=== PATIENT | male | born 1970 | race Caucasian/White ===

== ENCOUNTER 2017-01-22 12:08 | Emergency (ER) | payer BC ==
[~2017-01-22] VITALS: Ht 182.9 cm; Wt 100.0 kg
[~2017-01-22 12:08] MED LIST: DOXYCYCL HYC100 MG PO; FLONASE NASAL50 MCG; PREDNISONE20 MG PO
[2017-01-22] MEDS ORDERED: CIPROFLOXACN750 MG PO (12:43)
[2017-01-22 12:51] VITALS: BP 149/92
== END 2017-01-22 13:01 | disposition home or self-care (01) | DRG 605 ==
LOC: ED 12:08
PROC: 0HCQXZZ Extirpation of Matter from Finger Nail, External Approach (ICD-10-PCS; principal; 2017-01-22)
DX: S60.455A Superficial foreign body of left ring finger, initial encounter (principal); W45.8XXA Other foreign body or object entering through skin, initial encounter; Y93.89 Activity, other specified; Y92.89 Other specified places as the place of occurrence of the external cause

== ENCOUNTER 2017-09-29 07:33 | Day surgery (SDC) | payer BC ==
[~2017-09-29] VITALS: Ht 180.3 cm; Wt 86.2 kg
[~2017-09-29 07:33] MED LIST changes: +CIPROFLOXACN750 MG PO
[2017-09-29 10:34] VITALS: BP 116/75
[2017-09-29] MEDS ORDERED: METRONIDAZOL500 MG PO (20:15)
[2017-09-29] MEDS ORDERED: CIPROFLOXACN500 MG PO (20:15)
== END 2017-09-29 10:50 | disposition home or self-care (01) | DRG 951 ==
LOC: ENDO 07:33
PROVIDERS: ATTEND Surgery
PROC: 0DBP8ZX Excision of Rectum, Via Natural or Artificial Opening Endoscopic, Diagnostic (ICD-10-PCS; principal; 2017-09-29)
PROC: 0DBL8ZX Excision of Transverse Colon, Via Natural or Artificial Opening Endoscopic, Diagnostic (ICD-10-PCS; 2017-09-29)
PROC: 0DBN8ZX Excision of Sigmoid Colon, Via Natural or Artificial Opening Endoscopic, Diagnostic (ICD-10-PCS; 2017-09-29)
PROC: 3E0H8KZ Introduction of Other Diagnostic Substance into Lower GI, Via Natural or Artificial Opening Endoscopic (ICD-10-PCS; 2017-09-29)
DX: Z12.11 Encounter for screening for malignant neoplasm of colon (principal); C18.4 Malignant neoplasm of transverse colon; K63.5 Polyp of colon; K62.1 Rectal polyp; Z80.0 Family history of malignant neoplasm of digestive organs
CPT/HCPCS: Q9967; S0164

== ENCOUNTER 2017-09-29 17:58 | Emergency (ER) | payer BC ==
[~2017-09-29] VITALS: Ht 180.3 cm; Wt 90.0 kg
[2017-09-29 18:44] LABS: HEMATOCRIT 45.7 % (39.0-50.0); HEMOGLOBIN 15.1 g/dl (14.0-18.0); IMMATURE GRANULOCYTES 0.4 % (0.0-1.0); MEAN CELL VOLUME 90.1 fL CALC (80.0-100.0); MEAN CORPUSCULAR HGB 29.8 pG CALC (26.0-32.0); NEUT# 11.89 thou/uL (1.82-7.42); RED BLOOD COUNT 5.07 mill/uL (4.70-6.10); RED CELL DISTRI WIDTH 12.8 % (11.5-15.5)
[2017-09-29 19:06] LABS: URINE BILIRUBIN - DIPSTICK NEGATIVE (NEGATIVE); URINE BLOOD DIPSTICK NEGATIVE (NEGATIVE); URINE COLOR YELLOW; URINE GLUCOSE - DIPSTICK NEGATIVE (NEGATIVE); URINE KETONE TRACE mg/dL (NEGATIVE); URINE LEUK ESTERASE NEGATIVE (NEGATIVE); URINE NITRITE - DIPSTICK NEGATIVE (Negative); URINE PH 5.5 (4.5-8.0); URINE PROTEIN - DIPSTICK NEGATIVE (NEG-TRACE); URINE SPECIFIC GRAVITY 1.025; URINE UROBILINOGEN - DIPSTICK 0.2 E.U./dL (0.2)
[2017-09-29 19:07] LABS: URINE CLARITY CLEAR
[2017-09-29 19:11] LABS: ALBUMIN 4.3 g/dL (3.2-5.0); ALKALINE PHOSPHATASE 52 u/l (38-126); AMYLASE 65 u/l (30-110); ANION GAP 16 (6-22 (CALC)); BILIRUBIN, TOTAL 0.7 mg/dL (0.0-1.4); BUN 16 mg/dL (9-20); BUN/CREATININE RATIO 20 (12-20 (CALC)); CARBON DIOXIDE 24 mmol/l (22-30); CHLORIDE 100 mmol/l (95-108); CREATININE 0.8 mg/dL (0.7-1.3); GFR > 60 ML/MIN (>=60 (CALC)); GFR FOR AFR.AMER. > 60 ML/MIN (>=60 (CALC)); LIPASE 54 u/l (23-300); POTASSIUM 3.6 mmol/l (3.5-5.1); SGOT/AST 33 u/l (17-59); SGPT/ALT 45 u/l (21-72); SODIUM 137 mmol/l (137-146); TOTAL PROTEIN 7.6 g/dL (6.3-8.2)
[2017-09-29] MEDS ORDERED: METRONIDAZOL500 MG PO (20:15)
[2017-09-29] MEDS ORDERED: CIPROFLOXACN500 MG PO (20:15)
[2017-09-29 20:16] VITALS: BP 145/78
== END 2017-09-29 20:25 | disposition home or self-care (01) | DRG 392 ==
LOC: ED 17:58
PROVIDERS: Emergency Medicine
DX: K52.9 Noninfective gastroenteritis and colitis, unspecified (principal); Z98.890 Other specified postprocedural states
CPT/HCPCS: Q9967; S0164

== ENCOUNTER 2018-10-26 07:49 | Day surgery (SDC) | payer BC ==
[~2018-10-26] VITALS: Ht 180.3 cm; Wt 86.2 kg
[~2018-10-26 07:49] MED LIST changes: +CIPROFLOXACN500 MG PO; +METRONIDAZOL500 MG PO
[2018-10-26 10:06] VITALS: BP 109/75
== END 2018-10-26 10:15 | disposition home or self-care (01) | DRG 848 ==
LOC: ENDO 07:49
PROVIDERS: ATTEND Surgery
PROC: 0DJD8ZZ Inspection of Lower Intestinal Tract, Via Natural or Artificial Opening Endoscopic (ICD-10-PCS; principal; 2018-10-26)
DX: Z08 Encounter for follow-up examination after completed treatment for malignant neoplasm (principal); Z85.038 Personal history of other malignant neoplasm of large intestine; Z90.49 Acquired absence of other specified parts of digestive tract

== ENCOUNTER 2021-12-02 15:48 | Emergency (ER) | payer BC ==
[2021-12-02] VITALS (7 sets, daily range): BP systolic 117–135; BP diastolic 80–94
[~2021-12-02] VITALS: Ht 180.3 cm; Wt 90.0 kg
[2021-12-02] MEDS ORDERED: XARELTO15 MG PO (16:53)
[2021-12-02] MEDS ORDERED: XARELTO20 MG PO (16:53)
[2021-12-02] MEDS ORDERED: VALIUM2 MG PO (17:02)
[2021-12-02 17:10] LABS: HEMATOCRIT 32.9 % (39.0-50.0); HEMOGLOBIN 10.3 g/dl (14.0-18.0); IMMATURE GRANULOCYTES 0.5 % (0.0-5.0); MEAN CELL VOLUME 95.9 fL CALC (80.0-100.0); MEAN CORPUSCULAR HGB CONC 31.3 g/dL CAL (32.0-36.0); NEUT# 3.5 thou/uL (1.82-7.42); RED BLOOD COUNT 3.43 mill/uL (4.70-6.10); RED CELL DISTRI WIDTH 13.9 % (11.5-15.5)
[2021-12-02 17:25] LABS: ALBUMIN 3.9 g/dL (3.2-5.0); ALKALINE PHOSPHATASE 73 u/l (38-126); BILIRUBIN, TOTAL 0.6 mg/dL (0.0-1.4); BUN 16 mg/dL (9-20); BUN/CREATININE RATIO 16 (12-20 (CALC)); CHLORIDE 102 mmol/l (95-108); GFR FOR AFR.AMER. > 60 ML/MIN (>=60 (CALC)); GFR OTHER RACES > 60 ML/MIN (>=60 (CALC)); SGOT/AST 24 u/l (17-59); SODIUM 137 mmol/l (137-146); TOTAL PROTEIN 6.8 g/dL (6.3-8.2)
[2021-12-02 17:27] LABS: ANION GAP 10 (6-22 (CALC)); CARBON DIOXIDE 29 mmol/l (22-30); POTASSIUM 4.4 mmol/l (3.5-5.1)
== END 2021-12-02 17:47 | disposition home or self-care (01) | DRG 301 ==
LOC: ED 15:48
PROVIDERS: Emergency Medicine
DX: I82.401 Acute embolism and thrombosis of unspecified deep veins of right lower extremity (principal); Z87.81 Personal history of (healed) traumatic fracture

== ENCOUNTER 2021-12-17 09:38 | Emergency (ER) | payer BC ==
[~2021-12-17] VITALS: Ht 180.3 cm; Wt 90.7 kg
[~2021-12-17 09:38] MED LIST changes: +VALIUM2 MG PO; +XARELTO15 MG PO; +XARELTO20 MG PO
[2021-12-17 09:45] VITALS: BP 111/82
[2021-12-17 10:00] VITALS: BP 102/75
[2021-12-17 10:15] VITALS: BP 104/76
[2021-12-17 10:30] VITALS: BP 114/81
[2021-12-17 11:04] VITALS: BP 114/81
== END 2021-12-17 11:14 | disposition home or self-care (01) | DRG 948 ==
LOC: ED 09:38
DX: R60.0 Localized edema (principal); Z87.81 Personal history of (healed) traumatic fracture; Z86.718 Personal history of other venous thrombosis and embolism; Z79.01 Long term (current) use of anticoagulants; Z85.038 Personal history of other malignant neoplasm of large intestine; Z90.49 Acquired absence of other specified parts of digestive tract